=== PATIENT | female | born 1965 | race Caucasian/White ===

== ENCOUNTER 2017-10-16 10:40 | Inpatient (IN) | payer OTHER ==
[2017-10-16] VITALS (14 sets, daily range): BP systolic 135–249; BP diastolic 6–112; PULSE 60–84; RESP 16–20; TEMP 97.9–98.6; O2SAT 95–100
[~2017-10-16] VITALS: Ht 162.6 cm; Wt 105.8 kg
[~2017-10-16 10:40] MED LIST: ACET250T3 PO; AMIT50 PO; CLON0.1T PO; DIOV320T PO; ESCI20TA PO; FURO20 PO; HYDR-2768 PO; HYDR12.56 PO; LISI-515 PO; LISI10TA3 PO
[2017-10-16] MEDS ORDERED: ACETA500 PO (10:54)
--- NOTE | 2017-10-16 11:15 | PD ---
HPI Chief Complaint: Neuro Symptoms/ Deficits Time Seen by Provider: 11:15 Travel History International Travel<30 days: No Contact w/Intl Traveler<30days: No Traveled to known affect area: No History of Present Illness HPI 52-year-old female came to the emergency room brought by EMS for severe left sided headache followed by speech difficulty that started at 7:30 in the morning and lasted for 15 minutes after which she started talking normal. However patient says that the headache started 5:30 in the morning after which she took some Excedrin migraine. Patient has history of pseudotumor cerebri and when she got the initial headache she thought it could be related to that. However the location of the headache was different which was on the left side. 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 She was asked to go see a doctor and she went to the urgent care follow-up given her hypertension she was transported in the ambulance to the emergency room. Patient says currently her headache is 2 out of 10 and is just like a dull ache. No history of syncope or head injury. She appears anxious. Patient has history of hypertension and says that she took all her medications this morning that she was supposed to. [facility] Past Medical History Narrative Medical List of her past medical, surgical, social and family history is reviewed from the nursing note. Arthritis: Yes (oa) Autoimmune Disease: Yes (PSUEDO TUMOR CEREBRI) Anxiety: Yes (LEXAPRO) Cardiovascular Problems: Yes (HBP) High Cholesterol: Yes Chest Pain: Yes Diminished Hearing: No Deep Vein Thrombosis: Yes (NOT DEEP) Glaucoma: Yes (R) Hypertension: Yes Integumentary: Yes (ABCESS ON LEFT BUTTOCK) Migraines: Yes Sleep Apnea: Yes (noncompliant) Triglycerides - High: Yes ?: Not : 3 Para: 3 Tubal Ligation: Yes Past Surgical History Cholecystectomy: Yes Hysterectomy: Yes Tonsillectomy: Yes Tympanostomy Tube: Yes Other Surgery: Yes (EAR OPERATIONS RIGHT EAR) Social History Alcohol Use: No Tobacco Use: No Substance Use: No Allergies-Medications (Allergen,Severity, Reaction): Coded Allergies: No Known Allergies (Unverified Allergy, Unknown, 10/16/17) Comments No known drug allergies. Reported Meds & Prescriptions Reported Meds & Active Scripts Active Reported Diamox Sequels ER 12 HR (Acetazolamide) 500 Mg Cap 250 Mg PO DAILY Narrative Medication List of her home medications reviewed from the nursing note. Review of Systems Except as stated in HPI: all other systems reviewed are Neg Neurologic: Positive: Headache, Paresthesia Physical Exam Narrative GENERAL: Awake, alert, obese, moderate distress SKIN: Focused skin assessment warm/dry. HEAD: Atraumatic. Normocephalic. EYES: Pupils equal and round. No scleral icterus. No injection or drainage. ENT: No nasal bleeding or discharge. Mucous membranes pink and moist. NECK: Trachea midline. No JVD. CARDIOVASCULAR: Regular rate and rhythm. No murmur appreciated. RESPIRATORY: No accessory muscle use. Clear to auscultation. Breath sounds equal bilaterally. GASTROINTESTINAL: Abdomen soft, non-tender, nondistended. Hepatic and splenic margins not palpable. MUSCULOSKELETAL: No obvious deformities. No clubbing. No cyanosis. No edema. NEUROLOGICAL: Awake and alert. No obvious cranial nerve deficits. Motor grossly within normal limits. Normal speech. NIH stroke score of 0 PSYCHIATRIC: Appropriate mood and affect; insight and judgment normal. Data Data Last Documented VS Vital Signs Date Time Temp Pulse Resp B/P (MAP) Pulse Ox O2 Delivery O2 Flow Rate FiO2 10/16/17 12:46 69 16 164/72 (102) 10/16/17 12:16 99 Room Air 10/16/17 10:[address] Brain W/O Iv Contrast(Rout) (10/16/17 ) Nicardipine Inj (Cardene Inj) (10/16/17 11:15) Electrocardiogram (10/16/17 11:32) Prothrombin Time / Inr (Pt) (10/16/17 11:32) Complete Blood Count With Diff (10/16/17 11:32) Comprehensive Metabolic Panel (10/16/17 11:32) Creatine Kinase (Cpk) (10/16/17 11:32) Troponin I (10/16/17 11:32) Urinalysis - C+S If Indicated (10/16/17 11:32) Chest, Single Ap (10/16/17 11:32) Ecg Monitoring (10/16/17 11:32) Iv Access Insert/Monitor (10/16/17 11:32) Oximetry (10/16/17 11:32) Sodium Chloride 0.9% Flush (Ns Flush) (10/16/17 11:45) Admit Order (Ed Use Only) (10/16/17 13:10) Labs Laboratory Tests Test 10/16/17 10:55 10/16/17 12:15 White Blood Count 5.4 TH/MM3 Red Blood Count 5.03 MIL/MM3 Hemoglobin 13.7 GM/DL Hematocrit 40.5 % Mean Corpuscular Volume 80.6 FL Mean Corpuscular Hemoglobin 27.3 PG Mean Corpuscular Hemoglobin Concent 33.8 % Red Cell Distribution Width 14.5 % Platelet Count 201 TH/MM3 Mean Platelet Volume 9.8 FL Neutrophils (%) (Auto) 60.3 % Lymphocytes (%) (Auto) 30.8 % Monocytes (%) (Auto) 5.8 % Eosinophils (%) (Auto) 2.0 % Basophils (%) (Auto) 1.1 % Neutrophils # (Auto) 3.2 TH/MM3 Lymphocytes # (Auto) 1.7 TH/MM3 Monocytes # (Auto) 0.3 TH/MM3 Eosinophils # (Auto) 0.1 TH/MM3 Basophils # (Auto) 0.1 TH/MM3 CBC Comment DIFF FINAL Differential Comment Prothrombin Time 9.8 SEC Prothromb Time International Ratio 1.0 RATIO Blood Urea Nitrogen 16 MG/DL Creatinine 0.75 MG/DL Random Glucose 92 MG/DL Total Protein 7.9 GM/DL Albumin 3.9 GM/DL Calcium Level 9.1 MG/DL Alkaline Phosphatase 98 U/L Aspartate Amino Transf (AST/SGOT) 31 U/L Alanine Aminotransferase (ALT/SGPT) 31 U/L Total Bilirubin 0.7 MG/DL Sodium Level 139 MEQ/L Potassium Level 4.2 MEQ/L Chloride Level 106 MEQ/L Carbon Dioxide Level 26.9 MEQ/L Anion Gap 6 MEQ/L Estimat Glomerular Filtration Rate 81 ML/MIN Total Creatine Kinase 105 U/L Troponin I LESS THAN 0.02 NG/ML Urine Color LIGHT-YELLOW Urine Turbidity CLEAR Urine pH 6.0 Urine Specific [place] 1.010 Urine Protein NEG mg/dL Urine Glucose (UA) NEG mg/dL Urine Ketones NEG mg/dL Urine Occult Blood NEG Urine Nitrite NEG Urine Bilirubin NEG Urine Urobilinogen LESS THAN 2.0 MG/DL Urine Leukocyte Esterase NEG Urine RBC LESS THAN 1 /hpf Urine WBC LESS THAN 1 /hpf Urine Squamous Epithelial Cells 1 /hpf Urine Bacteria RARE /hpf Urine Mucus FEW /lpf Microscopic Urinalysis Comment CULT NOT INDICATED MDM Medical Decision Making Medical Screen Exam Complete: Yes Emergency Medical Condition: Yes Medical Record Reviewed: Yes Interpretation(s) Twelve-lead EKG was reviewed by me. Normal sinus rhythm, normal axis, LVH by voltage criteria, nonspecific ST-T wave changes. Heart rate of 61 bpm. Differential Diagnosis CVA, intracranial bleed, hypertensive emergency Narrative Course 1:08 PM patient was started on Cardene drip as soon as she came in. Workup has been negative so far including head CT and labs. Given her symptoms I would like to admit her at least for observation. Her current blood pressure is 156 systolic and the Cardene drip is being weaned off. I discussed the case with the hospitalist has accepted the patient. Patient is aware of this plan. Critical Care Narrative Aggregate critical care time was 45 minutes. Time to perform other separately billable procedures was not included in the critical care time. My time did not include minutes spent treating any other patients simultaneously or on activities that did not directly contribute to the patient's treatment. The services I provided to this patient were to treat and/or prevent clinically significant deterioration that could result in: Hypotensive emergency, TIA, Cardene drip I provided critical care services requiring my management, as noted below: Chart data review, documentation time, medication orders and management, vital sign assessments/reviewing monitor data, ordering and reviewing lab tests, ordering and interpreting/reviewing x-rays and diagnostic studies, care of the patient and discussion of the patient with the admitting physicians. Procedures EKG Prior to Arrival: Yes Diagnosis Primary Impression: Hypertensive emergency Additional Impression: TIA (transient ischemic attack) Qualified Codes: G45.9 - Transient cerebral ischemic attack, unspecified Admitting Information Admitting Physician Requests: Observation Scripts Nifedipine ER 24 HR (Nifedipine ER 24 HR) 30 Mg Tab 30 MG PO BID for htn, #60 TAB 0 Refills Prov: Roberto Vale DO 10/18/17 Arsh Garcia MD Oct 16, 2017 11:15
[2017-10-16] MEDS: niCARdipine INJ 25 MG in SODIUM CHLOR 0.9% 250 ML INJ 240 ML IV PRN ×2 (11:40→16:37)
[2017-10-16] MEDS ORDERED: SODIUM CHLORIDE 0.9% FLUSH 10 ML FLUSH IVF PRN (11:45)
[2017-10-16 11:52] LABS: AUTOMATED NEUTROPHIL # 3.2 TH/MM3 (1.8-7.7); BASOPHIL # 0.1 TH/MM3 (0-0.2); BASOPHIL % 1.1 % (0.0-2.0); EOSINOPHIL # 0.1 TH/MM3 (0-0.4); HEMATOCRIT 40.5 % (35.0-46.0); HEMOGLOBIN 13.7 GM/DL (11.6-15.3); LYMPH % 30.8 % (9.0-44.0); LYMPHOCYTE # 1.7 TH/MM3 (1.0-4.8); MEAN CELL VOLUME 80.6 FL (80.0-100.0); MEAN CORPUSCULAR HEMOGLOBIN 27.3 PG (27.0-34.0); MEAN CORPUSCULAR HGB CONC 33.8 % (32.0-36.0); MEAN PLATELET VOLUME 9.8 FL (7.0-11.0); MONO % 5.8 % (0.0-8.0); MONOCYTE # 0.3 TH/MM3 (0-0.9); NEUT % 60.3 % (16.0-70.0); PLATELET COUNT 201 TH/MM3 (150-450); RED BLOOD COUNT 5.03 MIL/MM3 (4.00-5.30); RED CELL DISTRIBUTION WIDTH 14.5 % (11.6-17.2); WHITE BLOOD COUNT 5.4 TH/MM3 (4.0-11.0)
[2017-10-16 11:57] LABS: PROTHROMBIN TIME - PATIENT 9.8 SEC (9.8-11.6)
--- NOTE | 2017-10-16 11:59 | RADRPT ---
EXAM DATE/TIME: 10/16/2017 11:46 [facility] COMPARISON: CT BRAIN W/O CONTRAST, September 29, 2016, 17:56. INDICATIONS : Left sided headachesince 3 A.M. RADIATION DOSE: 38.81 CTDIvol (mGy) MEDICAL HISTORY : Hypertension. pseudo tumor cerebri SURGICAL HISTORY : Hysterectomy. ENCOUNTER: Initial ACUITY: 1 day PAIN SCALE: 3/10 LOCATION: Left cranial TECHNIQUE: Multiple contiguous axial images were obtained of the head. Using automated exposure control and adj ustment of the mA and/or kV according to patient size, radiation dose was kept as low as reasonably a chievable to obtain optimal diagnostic quality images. DICOM format image data is available electro nically for review and comparison. FINDINGS: CEREBRUM: The ventricles are normal for age. No evidence of midline shift, mass lesion, hemorrhage or acute in farction. No extra-axial fluid collections are seen. POSTERIOR FOSSA: The cerebellum and brainstem are intact. The 4th ventricle is midline. The cerebellopontine angle i s unremarkable. EXTRACRANIAL: The visualized portion of the orbits is intact. SKULL: The calvaria is intact. No evidence of skull fracture. CONCLUSION: Negative for an acute process. Subacute subarachnoid hemorrhage cannot be entirely e xcluded. Julio Latham MD FACR on October 16, 2017 at 11:57 Board Certified Radiologist. This report was verified electronically.
[2017-10-16 12:14] LABS: ALBUMIN 3.9 GM/DL (3.4-5.0); ALKALINE PHOSPHATASE 98 U/L (45-117); ALT (GPT) 31 U/L (10-53); AST (GOT) 31 U/L (15-37); BICARBONATE 26.9 MEQ/L (21.0-32.0); BLOOD UREA NITROGEN 16 MG/DL (7-18); CALCIUM 9.1 MG/DL (8.5-10.1); CHLORIDE 106 MEQ/L (98-107); CREATININE 0.75 MG/DL (0.50-1.00); GLOMERULAR FILTRATION RATE 81 ML/MIN (>89); GLUCOSE,RANDOM 92 MG/DL (74-106); SODIUM (NA) 139 MEQ/L (136-145); TOTAL BILIRUBIN ADULT 0.7 MG/DL (0.2-1.0); TOTAL PROTEIN 7.9 GM/DL (6.4-8.2); TROPONIN I LESS THAN 0.02 NG/ML (0.02-0.05)
--- NOTE | 2017-10-16 12:25 | RADRPT ---
EXAM DATE/TIME: 10/16/2017 11:58 [facility] COMPARISON: No previous studies available for comparison. INDICATIONS : General weakness. MEDICAL HISTORY : Hypertension. SURGICAL HISTORY : None. ENCOUNTER: Initial ACUITY: 1 day PAIN SCORE: 0/10 LOCATION: Bilateral chest FINDINGS: A single view of the chest demonstrates the lungs to be symmetrically aerated without evidence of mas s, infiltrate or effusion. The cardiomediastinal contours are unremarkable. Osseous structures are intact. CONCLUSION: No acute disease. Artemio Wright MD on October 16, 2017 at 12:23 Board Certified Radiologist. This report was verified electronically.
[2017-10-16 12:48] LABS: BACTERIA, URINE RARE /hpf; BILIRUBIN, URINE NEG (NEG); BLOOD, URINE NEG (NEG); GLUCOSE,URINE NEG (NEG); KETONE, URINE NEG (NEG); MUCUS URINE FEW /lpf (OCC); NITRITE,URINE NEG (NEG); SQUAMOUS EPITHELIAL CELL URINE 1 /hpf (0-5); URINE COLOR LIGHT-YELLOW (YELLW/STRAW); URINE LEUKOCYTE ESTERASE NEG (NEG)
[2017-10-16] MEDS ORDERED: ENALAPRILAT 1.25 MG/ML VIAL IV PUSH PRN (13:15)
[2017-10-16] MEDS ORDERED: cloNIDine HCL 0.1 MG TAB PO PRN (13:15)
--- NOTE | 2017-10-16 13:21 | HHI.HP ---
HPI Service [facility] Hospitalists Primary Care Physician [facility] Admission Diagnosis hypertensive emergency, TIA Chief Complaint: Headache, elevated BP Travel History International Travel<30 Days: No Contact w/Intl Traveler <30 Da: No Traveled to Known Affected Are: No History of Present Illness Mrs. Devries is a pleasant 52 y/o WF with HTN and Pseudotumor cerebri. [place] [facility] [place] with complaints of severe left sided headache. She reported that she woke up around 3AM with a significant left sided headache. She tried taking an anti-inflammatory and went back to bed. She woke up again around 5:30AM and the headache persisted. She went to work and around 7:30AM she had some speech difficulty that lasted for 15 minutes after which she started talking normal. Patient has history of pseudotumor cerebri and when she got the initial headache she thought it could be related to that. However the location of the headache was different which was on the left side. 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 She was asked to go see a doctor and she went to the urgent care at [facility] and given her hypertension she was transported in the ambulance to the emergency room. She has history of hypertension and says that she took all her medications this morning. Her BP upon arrival to the ED was 249/112. Pt was started on Cardene gtt. Head CT in the ED which noted negative for acute process but subarachnoid hemorrhage cannot be entirely excluded. Review of Systems Constitutional: DENIES: Diaphoretic episodes, Fever, Chills Eyes: DENIES: Vision loss Ears, nose, mouth, throat: DENIES: Hearing loss Respiratory: DENIES: Cough, Shortness of breath Cardiovascular: DENIES: Chest pain, Palpitations, Dyspnea on Exertion, Lower Extremity Edema Gastrointestinal: DENIES: Abdominal pain, Constipation, Diarrhea, Nausea, Vomiting Genitourinary: DENIES: Urinary frequency, Dysuria Musculoskeletal: DENIES: Back pain, Neck pain Integumentary: DENIES: Rash Neurologic: COMPLAINS OF: Headache, Speech Problems Psychiatric: DENIES: Confusion Past Family Social History Past Medical History HTN Pseudotumor cerebri Osteoarthritis Past Surgical History Right ear surgery, 2011 Cholecystectomy Tonsillectomy Tubal ligation Reported Medications Lisinopril 20 Mg PO DAILY Hydrochlorothiazide 12.5 Mg PO DAILY Diamox Sequels ER 12 HR 250 Mg PO DAILY Allergies: Coded Allergies: No Known Allergies (Unverified Allergy, Unknown, 10/16/17) Family History Father at age 76 from CAD Mother at age 63 with hx of CAD and uterine cancer Pt has three brothers and two sisters who are living Social History Pt is Pt has three children, one is She works in school cafeteria Denies any alcohol, tobacco or illicit drug use Physical Exam Vital Signs Vital Signs Date Time Temp Pulse Resp B/P (MAP) Pulse Ox O2 Delivery O2 Flow Rate FiO2 10/16/17 13:16 68 154/68 (96) 10/16/17 12:46 69 16 164/72 (102) 10/16/17 12:16 74 18 184/62 (102) 99 Room Air 10/16/17 11:55 79 224/102 (142) 10/16/17 11:45 79 217/96 (136) 10/16/17 11:40 68 200/90 10/16/17 10:46 98.6 64 16 221/100 (140) 98 249/112 (157) Physical Exam GENERAL: This is a well-nourished, well-developed patient, in no apparent distress. SKIN: No rashes, ecchymoses or lesions. Cool and dry. HEENT: Atraumatic. Normocephalic. No temporal or scalp tenderness. No scleral icterus. Airway patent. NECK: Trachea midline, supple, nontender. CARDIO: Regular. RESP: CTA bilaterally. No wheezes, rales, or rhonchi. ABD: +BS, soft, non-tender, nondistended. EXT: Extremities without clubbing, cyanosis, or edema. NEURO: Awake and alert. Motor and sensory grossly within normal limits. Normal speech. Laboratory Laboratory Tests Test 10/16/17 10:55 10/16/17 12:15 White Blood Count 5.4 Red Blood Count 5.03 Hemoglobin 13.7 Hematocrit 40.5 Mean Corpuscular Volume 80.6 Mean Corpuscular Hemoglobin 27.3 Mean Corpuscular Hemoglobin Concent 33.8 Red Cell Distribution Width 14.5 Platelet Count 201 Mean Platelet Volume 9.8 Neutrophils (%) (Auto) 60.3 Lymphocytes (%) (Auto) 30.8 Monocytes (%) (Auto) 5.8 Eosinophils (%) (Auto) 2.0 Basophils (%) (Auto) 1.1 Neutrophils # (Auto) 3.2 Lymphocytes # (Auto) 1.7 Monocytes # (Auto) 0.3 Eosinophils # (Auto) 0.1 Basophils # (Auto) 0.1 CBC Comment DIFF FINAL Differential Comment Prothrombin Time 9.8 Prothromb Time International Ratio 1.0 Blood Urea Nitrogen 16 Creatinine 0.75 Random Glucose 92 Total Protein 7.9 Albumin 3.9 Calcium Level 9.1 Alkaline Phosphatase 98 Aspartate Amino Transf (AST/SGOT) 31 Alanine Aminotransferase (ALT/SGPT) 31 Total Bilirubin 0.7 Sodium Level 139 Potassium Level 4.2 Chloride Level 106 Carbon Dioxide Level 26.9 Anion Gap 6 Estimat Glomerular Filtration Rate 81 Total Creatine Kinase 105 Troponin I LESS THAN 0.02 Urine Color LIGHT-YELLOW Urine Turbidity CLEAR Urine pH 6.0 Urine Specific [place] 1.010 Urine Protein NEG Urine Glucose (UA) NEG Urine Ketones NEG Urine Occult Blood NEG Urine Nitrite NEG Urine Bilirubin NEG Urine Urobilinogen LESS THAN 2.0 Urine Leukocyte Esterase NEG Urine RBC LESS THAN 1 Urine WBC LESS THAN 1 Urine Squamous Epithelial Cells 1 Urine Bacteria RARE Urine Mucus FEW Microscopic Urinalysis Comment CULT NOT INDICATED Result Diagram: 10/16/17 1055 10/16/17 1055 Imaging CXR (10/16/17) - No acute disease Head CT W/O contrast (10/16/17): - Negative for acute process. - Subarachnoid hemorrhage cannot be entirely excluded. Caprini VTE Risk Assessment Caprini VTE Risk Assessment: Mod/High Risk (score >= 2) Caprini Risk Assessment Model Point Value = 1 Point Value = 2 Point Value = 3 Point Value = 5 Age 41-60 Minor surgery BMI > 25 kg/m2 Swollen legs Varicose veins or History of unexplained or recurrent spontaneous Oral contraceptives or hormone replacement Sepsis (< 1 month) Serious lung disease, including pneumonia (< 1 month) Abnormal pulmonary function Acute myocardial infarction Congestive heart failure (< 1 month) History of inflammatory bowel disease Medical patient at bed rest Age 61-74 Arthroscopic surgery Major open surgery (> 45 min) Laparoscopic surgery (> 45 min) Malignancy Confined to bed (> 72 hours) Immobilizing plaster cast Central venous access Age >= 75 History of VTE Family history of VTE Factor V Leiden Prothrombin [id number] Lupus anticoagulant Anticardiolipin antibodies Elevated serum homocysteine Heparin-induced thrombocytopenia Other congenital or acquired thrombophilia Stroke (< 1 month) Elective arthroplasty Hip, pelvis, or leg fracture Acute spinal cord injury (< 1 month) Prophylaxis Regimen Total Risk Factor Score Risk Level Prophylaxis Regimen 0-1 Low Early ambulation 2 Moderate Order ONE of the following: *Sequential Compression Device (SCD) *Heparin 5000 units SQ BID 3-4 Higher Order ONE of the following medications: *Heparin 5000 units SQ TID *Enoxaparin/Lovenox 40 mg SQ daily (WT < 150 kg, CrCl > 30 mL/min) *Enoxaparin/Lovenox 30 mg SQ daily (WT < 150 kg, CrCl > 10-29 mL/min) *Enoxaparin/Lovenox 30 mg SQ BID (WT < 150 kg, CrCl > 30 mL/min) AND/OR *Sequential Compression Device (SCD) 5 or more Highest Order ONE of the following medications: *Heparin 5000 units SQ TID (Preferred with Epidurals) *Enoxaparin/Lovenox 40 mg SQ daily (WT < 150 kg, CrCl > 30 mL/min) *Enoxaparin/Lovenox 30 mg SQ daily (WT < 150 kg, CrCl > 10-29 mL/min) *Enoxaparin/Lovenox 30 mg SQ BID (WT < 150 kg, CrCl > 30 mL/min) AND *Sequential Compression Device (SCD) Assessment and Plan Problem List: (1) Hypertensive emergency ICD Codes: I16.1 - Hypertensive emergency Status: Acute Plan: - Pt is a 52 y/o WF with HTN and Pseudotumor cerebri. - She [place] [facility] [place] with complaints of severe left sided headache and then developed speech difficulty. Patient has history of pseudotumor cerebri and when she got the initial headache she thought it could be related to that. 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 - Her BP upon arrival to the ED was 249/112. Pt was started on Cardene gtt. - Head CT in the ED which noted negative for acute process but subarachnoid hemorrhage cannot be entirely excluded. - Start Procardia XL 60mg po BID and wean off Cardene gtt - Clonidine PRN - Vasotec PRN - Check MRI Brain without contrast - Supportive care (2) Chronic hypertension ICD Codes: I10 - Essential (primary) hypertension Status: Acute Plan: - See above (3) Pseudotumor cerebri ICD Codes: G93.2 - Benign intracranial hypertension Status: Chronic Plan: - Pt with a hx of pseudotumor cerebri in 2015 - Cont. Diamox Assessment and Plan Patient examined. Assessment and plan formulated with Hanh Sethi PA-C. I agree with the above. Physician Certification 2 Midnight Certification Type: Admission for Inpatient Services Order for Inpatient Services The services are ordered in accordance with Medicare regulations or non- Medicare payer requirements, as applicable. In the case of services not specified as inpatient-only, they are appropriately provided as inpatient services in accordance with the 2-midnight benchmark. Estimated LOS (days): 3 3 days is the estimated time the patient will need to remain in the hospital, assuming treatment plan goals are met and no additional complications. Post-Hospital Plan: Not yet determined Hanh Sethi Oct 16, 2017 13:21 Roberto Vale DO Oct 18, 2017 11:52
[2017-10-16] MEDS: NIFEdipine 30 MG SUSTAINED RELEASE TAB PO SCH ×2 (14:33→20:13)
[2017-10-16] MEDS: ACETAMINOPHEN 325 MG TAB PO PRN (14:50)
[2017-10-16] MEDS: ACETAMINOPHEN/HYDROcodone 325 MG/5 MG TAB PO PRN (18:49)
[2017-10-16] MEDS ORDERED: CHLORHEXIDINE GLUCONATE 2 % 1 PACK (2 CLOTHS)(extra cloths) TOPICAL PRN (23:15)
[2017-10-17] VITALS (12 sets, daily range): BP systolic 109–143; BP diastolic 55–76; PULSE 51–87; RESP 13–50; TEMP 97.9–98.5; O2SAT 95–98
[2017-10-17] MEDS: CHLORHEXIDINE GLUCONATE 2 % 1 PACK (2 CLOTHS)(taper/protocol) TOPICAL SCH (04:00)
[2017-10-17] MEDS: ACETAMINOPHEN/HYDROcodone 325 MG/5 MG TAB PO PRN ×2 (04:06→11:00)
[2017-10-17 05:25] LABS: BASOPHIL # 0.1 TH/MM3 (0-0.2); BASOPHIL % 1.2 % (0.0-2.0); EOSINOPHIL # 0.1 TH/MM3 (0-0.4); EOSINOPHIL % 2.6 % (0.0-4.0); HEMATOCRIT 40.4 % (35.0-46.0); HEMOGLOBIN 13.8 GM/DL (11.6-15.3); LYMPHOCYTE # 1.7 TH/MM3 (1.0-4.8); MEAN CELL VOLUME 80.1 FL (80.0-100.0); MEAN CORPUSCULAR HEMOGLOBIN 27.4 PG (27.0-34.0); MEAN CORPUSCULAR HGB CONC 34.2 % (32.0-36.0); MEAN PLATELET VOLUME 9.5 FL (7.0-11.0); MONO % 7.3 % (0.0-8.0); MONOCYTE # 0.4 TH/MM3 (0-0.9); NEUT % 56.9 % (16.0-70.0); PLATELET COUNT 203 TH/MM3 (150-450); RED BLOOD COUNT 5.05 MIL/MM3 (4.00-5.30); RED CELL DISTRIBUTION WIDTH 14.1 % (11.6-17.2); WHITE BLOOD COUNT 5.3 TH/MM3 (4.0-11.0)
[2017-10-17 05:40] LABS: BICARBONATE 28.6 MEQ/L (21.0-32.0); CALCIUM 9.1 MG/DL (8.5-10.1); CREATININE 0.66 MG/DL (0.50-1.00); MAGNESIUM 2.2 MG/DL (1.5-2.5)
[2017-10-17] MEDS: NIFEdipine 30 MG SUSTAINED RELEASE TAB PO SCH (09:00)
[2017-10-17] MEDS: LORazepam 2 MG/ML VIAL IV PUSH PRN (09:30)
--- NOTE | 2017-10-17 09:32 | HHI.PR ---
Subjective Remarks Pt still with headache, more on the top of her head and left side this morning. Denies any nausea/vomiting, vision changes, speech changes, weakness in her extremities She has been ambulating to the bathroom without difficulty The MRI brain was not performed last night. Objective Vitals Vital Signs Date Time Temp Pulse Resp B/P (MAP) Pulse Ox O2 Delivery O2 Flow Rate FiO2 10/17/17 08:00 59 10/17/17 06:00 61 10/17/17 04:00 61 10/17/17 04:00 98.2 61 50 111/60 (77) 97 10/17/17 02:00 51 10/17/17 00:00 59 10/17/17 00:00 98.0 59 24 113/55 (74) 95 10/16/17 22:00 60 10/16/17 20:16 78 149/72 10/16/17 20:13 20 10/16/17 20:00 97.9 76 20 149/72 (97) 96 10/16/17 20:00 76 10/16/17 16:37 72 135/76 10/16/17 16:31 98.3 84 16 135/6 (49) 100 10/16/17 16:30 84 100 10/16/17 16:30 84 10/16/17 15:53 10/16/17 15:26 84 17 159/70 (99) 95 Room Air 10/16/17 14:50 77 161/72 (101) 10/16/17 14:33 77 153/75 (101) 10/16/17 14:05 75 162/67 (98) 10/16/17 13:16 68 154/68 (96) 10/16/17 12:46 69 16 164/72 (102) 10/16/17 12:16 74 18 184/62 (102) 99 Room Air 10/16/17 11:55 79 224/102 (142) 10/16/17 11:45 79 217/96 (136) 10/16/17 11:40 68 200/90 10/16/17 10:46 98.6 64 16 221/100 (140) 98 249/112 (157) Result Diagram: 10/17/17 0500 10/17/17 0500 Other Results Laboratory Tests Test 10/16/17 10:55 10/16/17 12:15 10/16/17 19:40 10/17/17 05:00 White Blood Count 5.4 TH/MM3 5.3 TH/MM3 Red Blood Count 5.03 MIL/MM3 5.05 MIL/MM3 Hemoglobin 13.7 GM/DL 13.8 GM/DL Hematocrit 40.5 % 40.4 % Mean Corpuscular Volume 80.6 FL 80.1 FL Mean Corpuscular Hemoglobin 27.3 PG 27.4 PG Mean Corpuscular Hemoglobin Concent 33.8 % 34.2 % Red Cell Distribution Width 14.5 % 14.1 % Platelet Count 201 TH/MM3 203 TH/MM3 Mean Platelet Volume 9.8 FL 9.5 FL Neutrophils (%) (Auto) 60.3 % 56.9 % Lymphocytes (%) (Auto) 30.8 % 32.0 % Monocytes (%) (Auto) 5.8 % 7.3 % Eosinophils (%) (Auto) 2.0 % 2.6 % Basophils (%) (Auto) 1.1 % 1.2 % Neutrophils # (Auto) 3.2 TH/MM3 3.0 TH/MM3 Lymphocytes # (Auto) 1.7 TH/MM3 1.7 TH/MM3 Monocytes # (Auto) 0.3 TH/MM3 0.4 TH/MM3 Eosinophils # (Auto) 0.1 TH/MM3 0.1 TH/MM3 Basophils # (Auto) 0.1 TH/MM3 0.1 TH/MM3 CBC Comment DIFF FINAL DIFF FINAL Differential Comment Prothrombin Time 9.8 SEC Prothromb Time International Ratio 1.0 RATIO Blood Urea Nitrogen 16 MG/DL 16 MG/DL Creatinine 0.75 MG/DL 0.66 MG/DL Random Glucose 92 MG/DL 96 MG/DL Total Protein 7.9 GM/DL Albumin 3.9 GM/DL Calcium Level 9.1 MG/DL 9.1 MG/DL Alkaline Phosphatase 98 U/L Aspartate Amino Transf (AST/SGOT) 31 U/L Alanine Aminotransferase (ALT/SGPT) 31 U/L Total Bilirubin 0.7 MG/DL Sodium Level 139 MEQ/L 140 MEQ/L Potassium Level 4.2 MEQ/L 3.8 MEQ/L Chloride Level 106 MEQ/L 106 MEQ/L Carbon Dioxide Level 26.9 MEQ/L 28.6 MEQ/L Anion Gap 6 MEQ/L 5 MEQ/L Estimat Glomerular Filtration Rate 81 ML/MIN 94 ML/MIN Total Creatine Kinase 105 U/L Troponin I LESS THAN 0.02 NG/ML Urine Color LIGHT-YELLOW Urine Turbidity CLEAR Urine pH 6.0 Urine Specific [place] 1.010 Urine Protein NEG mg/dL Urine Glucose (UA) NEG mg/dL Urine Ketones NEG mg/dL Urine Occult Blood NEG Urine Nitrite NEG Urine Bilirubin NEG Urine Urobilinogen LESS THAN 2.0 MG/DL Urine Leukocyte Esterase NEG Urine RBC LESS THAN 1 /hpf Urine WBC LESS THAN 1 /hpf Urine Squamous Epithelial Cells 1 /hpf Urine Bacteria RARE /hpf Urine Mucus FEW /lpf Microscopic Urinalysis Comment CULT NOT INDICATED Nasal Screen MRSA (PCR) MRSA DETECTED Magnesium Level 2.2 MG/DL Imaging CXR (10/16/17) - No acute disease Head CT W/O contrast (10/16/17): - Negative for acute process. - Subarachnoid hemorrhage cannot be entirely excluded. Objective Remarks General: NAD, AAOx3 Chest: CTA Cardiac: Regular Abd: +BS, soft ND/NT Ext: No edema A/P Problem List: (1) Hypertensive emergency ICD Codes: I16.1 - Hypertensive emergency Status: Acute Plan: - Pt is a 52 y/o WF with HTN and Pseudotumor cerebri. - She presented to the ED at [facility] on 10/16/17 with complaints of severe left sided headache and then developed speech difficulty. Patient has history of pseudotumor cerebri and when she got the initial headache she thought it could be related to that. 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 - Her BP upon arrival to the ED was 249/112. Pt was started on Cardene gtt. - Head CT in the ED which noted negative for acute process but subarachnoid hemorrhage cannot be entirely excluded. - Procardia XL 60mg po BID started with hold parameters if systolic BP is less than 140 - Pt was weaned off Cardene gtt - Clonidine PRN - Vasotec PRN - MRI Brain without contrast was ordered yesterday evening but still not completed, await results - Supportive care (2) Chronic hypertension ICD Codes: I10 - Essential (primary) hypertension Status: Acute Plan: - See above (3) Pseudotumor cerebri ICD Codes: G93.2 - Benign intracranial hypertension Status: Chronic Plan: - Pt with a hx of pseudotumor cerebri in 2015 - Cont. Diamox Assessment and Plan Patient examined. Assessment and plan formulated with Hanh Sethi PA-C. I agree with the above. h/o pseudotumor cerebri Pt c/o persistent GUERRERO will request Neurology consultation Hanh Sethi Oct 17, 2017 09:32 Roberto Vale DO Oct 17, 2017 18:39
[2017-10-17] MEDS: ONDANSETRON HCL 4 MG/2 ML VIAL IV PRN ×2 (11:00→17:11)
--- NOTE | 2017-10-17 11:01 | RADRPT ---
EXAM DATE/TIME: 10/17/2017 10:09 This report includes an Addendum and supersedes previous reports for this exam. [facility] COMPARISON: CT BRAIN W/O CONTRAST, October 16, 2017, 11:46. INDICATIONS : Left sided cephalgia. MEDICAL HISTORY : Hypertension. Osteoporosis. SURGICAL HISTORY : Tubal ligation. Tonsillectomy. Cholecystectomy. eardrum repair ENCOUNTER: Subsequent ACUITY: 2 day PAIN SCORE: 0/10 LOCATION: cranial TECHNIQUE: Multiplanar, multisequence MRI of the brain was performed without contrast. FINDINGS: CEREBRUM: The ventricles are normal. There is a CSF density area in the left caudate nucleus head which could r epresent old lacune or prominent perivascular space. No evidence of midline shift, mass lesion, hemo rrhage or acute infarction. No extraaxial fluid collections are seen. The pituitary gland and supra sellar cistern are normal in configuration. WHITE MATTER: There is minimal punctate subcortical white matter signal change in the frontal lobes bilaterally. POSTERIOR FOSSA: The cerebellum and brainstem are intact. The 4th ventricle is midline. The cerebellopontine angle is unremarkable. The cerebellar tonsils are normal in position. DIFFUSION IMAGING: No focal areas of restricted diffusion are seen. No evidence of acute infarction. EXTRACRANIAL: The visualized portions of the orbits and paranasal sinuses are unremarkable. CONCLUSION: No acute intracranial abnormality is identified to explain the clinical symptoms. Artemio Acuña MD on October 17, 2017 at 10:57 Board Certified Radiologist. This report was verified electronically. ADDENDUM: This case was further discussed with Dr. Vale. In order to further clarify the finding in the lef t caudate nucleus head adjacent to the anterior limb of the internal capsule, this finding is associa flako with increased T2 signal but there is no restricted diffusion present. Therefore, this is an old finding and could represent an old lacune. There are minimal bifrontal subcortical white matter bhakta es that are also chronic. Artemio Acuña MD on October 18, 2017 at 10:59 Board Certified Radiologist. This report was verified electronically.
--- NOTE | 2017-10-17 22:55 | EKG ---
Date Performed: 10/16/2017 Time Performed: 10:53:55 PTAGE: 52 years EKG: Sinus rhythm MINIMAL VOLTAGE CRITERIA FOR LVH, CONSIDER NORMAL VARIANT BORDERLINE ECG NO PREVIOUS TRACING DOCTOR: Jelani Sands Interpretating Date/Time 10/17/2017 22:53:12
[2017-10-18] VITALS (8 sets, daily range): BP systolic 113–160; BP diastolic 59–92; PULSE 51–81; RESP 13–17; TEMP 98–98.3; O2SAT 94–100
[2017-10-18] MEDS: CHLORHEXIDINE GLUCONATE 2 % 1 PACK (2 CLOTHS)(taper/protocol) TOPICAL SCH (04:00)
[2017-10-18] MEDS: ACETAMINOPHEN 325 MG TAB PO PRN (08:08)
[2017-10-18] MEDS ORDERED: NIFEdipine 30 MG SUSTAINED RELEASE TAB PO SCH (09:00)
--- NOTE | 2017-10-18 09:50 | MB ---
cc: Scout Back MD, David J MD Geis,Cecilio Dangelo MD DATE OF CONSULT: REASON FOR CONSULTATION: The patient is a 52 year old woman with a history of hypertension, hypercholesteremia. As a child she had some ear problems and loss of consciousness. She had surgery in 2011 for ear to repair her eardrum, possible cholesteatoma, she is not sure. She has been seeing a neurologist over in [place]. She also saw an sr. logistics analyst over in [place] and also saw an sr. logistics analyst in that vicinity, recently. She was diagnosed with pseudotumor with multiple lumbar punctures in the past by Dr. Smyth at [facility] and then recently with a neurologist over in the [place] area. She was treated with Diamox but has not taken that in the last month. She had some neuropathy on it but has been taking 250 mg per day, had some tingling in her feet. She was diagnosed with glaucoma in the right eye recently also. She has had a history of hypertension before, malignant hypertension at times. She was on Lasix, Acetazolamide, hydrochlorothiazide back in 2015 when she was seen by neurosurgery here. A BP shut was concerned after formal visual scott testing as an outpatient at that time by Dr. Carcamo, evidently that was never done. She feels like her vision is worse then it was a year ago. She has headaches four days per week which wake her up at night. REVIEW OF SYSTEMS: She has had some weight loss in the last three to four years. She is on Weight Watchers now, still obese however. She denies any diabetes, CO, CABG, stent angioplasty, afib, coumadin, renal, hepatic or pulmonary disease, thyroid disease, lupus, ulcer, cancer, seizure or stroke. SOCIAL HISTORY: She is not a smoker, or a drinker. Lives with her . FAMILY HISTORY: Positive for cancer, negative for seizure, positive stroke. MEDICATIONS: She takes Diamox 250 mg per day but has not had it in a month. She is on Lisinopril and hydrochlorothiazide 12.5 mg per day. ALLERGIES: No known drug allergies. PHYSICAL EXAMINATION: VITAL SIGNS: Initially her blood pressure when she came in was 221/100 to 249/112. She was in a year ago with 237/137, her pressure is now down to 130/66. She is awake and alert, Speech is fluent she is not aphasic. HEENT: The pupils are equal, discs were not particularly deep but no major papillary edema is noted by myself. Extraocular movements intact without nystagmus. Visual scott appeared full. Her blind spot did not appear to be enlarged. Her visual acuity is 20/70 bilaterally with her reading glasses one. Face is symmetric. Tongue is midline. She has NEUROLOGICALLY: She has normal strength in her upper and lower extremities bilaterally. Toes are downgoing bilaterally. LABORATORY FINDINGS: CBC is normal. Basic metabolic profile, LFT's, troponin all normal. UA was negative. Coags normal. She had an LP done in 2016 it showed a glucose of 52, total protein 27. Otherwise normal. At that time, opening pressure was 28.2 centimeter 's of water. She had opening pressures as high as 47 she tells me. She had a CT that was negative of the brain. Chest x-ray negative. MRI of the brain that is normal. The brain does in fact look normal. Ventricles I would say are normal size for her age, maybe a little smaller then what we expect. No hemorrhage is noted. IMPRESSION/PLAN: History of pseudotumor. Some decreased visual acuity. We could have neurosurgery weight in on the case. She has been treated conservatively over the years. Her neurologist was going to make a decision whether she needed a shunt or not. We could try to have Dr. Cecilio Hardwick, Ophthalmology see her while here. I would check a MR Venogram, make sure that there is no sagittal sinus thrombosis chronically and treat her blood pressure. We will also check a Sed rate on her. I have again asked her to try to lose weight, maybe a bit more aggressively then she has and overall I felt that she looked fairly well neurologically but she has had some decrease in visual acuity over the last year. MD EVA Morales/PATSY , 08:52 AM , 09:49 AM
[2017-10-18] MEDS ORDERED: acetaZOLAMIDE 250 MG TAB PO SCH (10:00)
--- NOTE | 2017-10-18 12:17 | HHI.PR ---
Subjective Remarks Pt c/o continued GUERRERO. Pt does NOT want narcotics. Objective Vitals Vital Signs Date Time Temp Pulse Resp B/P (MAP) Pulse Ox O2 Delivery O2 Flow Rate FiO2 10/18/17 10:00 62 10/18/17 08:00 98.3 63 17 158/70 (99) 100 10/18/17 08:00 63 10/18/17 06:00 60 10/18/17 04:00 51 10/18/17 04:00 98.1 51 13 130/66 (87) 94 10/18/17 02:00 55 10/18/17 00:00 61 10/18/17 00:00 98.0 61 14 113/59 (77) 95 10/17/17 22:00 59 10/17/17 20:00 62 10/17/17 20:00 97.9 62 13 134/63 (86) 95 10/17/17 18:00 66 10/17/17 16:00 64 10/17/17 16:00 98.5 67 23 141/63 (89) 95 10/17/17 14:00 60 Result Diagram: 10/17/17 0500 10/17/17 0500 Imaging CXR (10/16/17) - No acute disease Head CT W/O contrast (10/16/17): - Negative for acute process. - Subarachnoid hemorrhage cannot be entirely excluded. Objective Remarks General: NAD, AAOx3 Chest: CTA Cardiac: Regular Abd: +BS, soft ND/NT Ext: No edema A/P Problem List: (1) Hypertensive emergency ICD Codes: I16.1 - Hypertensive emergency Status: Acute Plan: - Pt is a 52 y/o WF with HTN and Pseudotumor cerebri. - She presented to the ED at [facility] on 10/16/17 with complaints of severe left sided headache and then developed speech difficulty. Patient has history of pseudotumor cerebri and when she got the initial headache she thought it could be related to that. 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 - Her BP upon arrival to the ED was 249/112. Pt was started on Cardene gtt. - Head CT in the ED which noted negative for acute process but subarachnoid hemorrhage cannot be entirely excluded. - Procardia XL 60mg po BID started with hold parameters if systolic BP is less than 140 - Pt was weaned off Cardene gtt - MRI brain (10/17) - old left basal ganglia lacunar infarct - obtain MRV per neurology recommendations, r/o thrombosis - Case d/w Neuroophthalmology, Dr. Barker. He recommends examination in his office. Will arrange for 10/20/17. - Case d/w Neurosurgery, Dr. Felix. He wants pt seen by Neuroophthalmology, Dr. Barker, first and then f/u outpt with Dr. Felix in 2 weeks. - Pt is in the process of switching to new [facility] PCP. Pt considering Dr. Cecile Garcia, [place]. - Pt will need f/u with PCP in 2 weeks. Pt to keep home BP log. Pt may need increase of her procardia XL 30mg to BID depending on outpt BP readings. - see discharge orders. - Case d/w [facility], Case Mgmt. Pt will be enrolled in [facility] Complex Case mgmt program. (2) Chronic hypertension ICD Codes: I10 - Essential (primary) hypertension Status: Acute Plan: - See above (3) Pseudotumor cerebri ICD Codes: G93.2 - Benign intracranial hypertension Status: Chronic Plan: - Pt with a hx of pseudotumor cerebri in 2014 - Cont. Roberto Michelle DO Oct 18, 2017 12:17
[2017-10-18] MEDS: LORazepam 2 MG/ML VIAL IV PUSH PRN (12:59)
[2017-10-18 13:39] LABS: FREE T4 0.82 NG/DL (0.76-1.46)
[2017-10-18] MEDS ORDERED: GADODIAMIDE PF 287 MG/ML 20 ML VIAL (for RAD MRI) IVCONTRAST ONE (14:49)
--- NOTE | 2017-10-18 14:54 | RADRPT ---
EXAM DATE/TIME: 10/18/2017 13:50 COMPARISON: No previous studies available for comparison. INDICATIONS : Cephalgia. CONTRAST: 20 cc Omniscan (gadodiamide) IV MEDICAL HISTORY : Hypertension. Osteoporosis. SURGICAL HISTORY : Tubal ligation. Tonsillectomy. Cholecystectomy. Rt ear surgery. ENCOUNTER: Subsequent ACUITY: 2 day PAIN SCORE: 0/10 LOCATION: cranial FINDINGS: There is good visualization of the deep and superficial cerebral veins. There is no thrombosis ident ified. CONCLUSION: Negative for cerebral vein thrombosis. Julio Latham MD FACR on October 18, 2017 at 14:52 Board Certified Radiologist. This report was verified electronically.
[2017-10-18] MEDS ORDERED: NIFE30TA8 PO (15:42)
[2017-10-20 12:39] LABS: ANA SCREEN NEG (NEG)
== END 2017-10-18 16:30 | disposition home or self-care (01) | DRG 305 ==
LOC: NEPE 10:40 → NEDA 13:13 → HIMN 16:15 → OBSVTOIN 17:03
PROVIDERS: ADMIT Hospitalist; ATTEND Hospitalist
DX: I16.1 Hypertensive emergency (principal); Z68.41 Body mass index [BMI] 40.0-44.9, adult; E66.9 Obesity, unspecified; G93.2 Benign intracranial hypertension; I10 Essential (primary) hypertension; M19.90 Unspecified osteoarthritis, unspecified site; E78.00 Pure hypercholesterolemia, unspecified; F41.9 Anxiety disorder, unspecified; G47.30 Sleep apnea, unspecified; G62.9 Polyneuropathy, unspecified; H40.9 Unspecified glaucoma; Z86.73 Personal history of transient ischemic attack (TIA), and cerebral infarction without residual deficits
CPT/HCPCS: 70450; 70546; 70551; 71045; 80048; 80053; 81001; 82550; 82607; 83735; 83921; 84439; 84443; 84484; 85025; 85610; 85652; 86038; 86592; 87641; 93005; 96365; 96366; A9579; J2060; J2405; J7050